=== PATIENT | male | born 1975 | race Caucasian/White ===

== ENCOUNTER 2023-01-12 11:32 | Day surgery (SDC) | payer MEDICAID ==
[~2023-01-12] VITALS: Ht 180.3 cm; Wt 128.0 kg
[2023-01-12] VITALS (13 sets, daily range): BP systolic 105–143; BP diastolic 61–90
[2023-01-12] MEDS ORDERED: famotidine 20mg tablet PO ONE (11:35)
[2023-01-12] MEDS ORDERED: INDOCYANINE GREEN 25 MG/10 ML VIAL IV ONE (12:01)
[2023-01-12] MEDS ORDERED: cefazolin 2gm/D5W 100mL 100 ML IV ONE (12:01)
[2023-01-12] MEDS ORDERED: ceFAZolin inj. 3,000 MG in normal saline 100ml IV soln 100 ML IV ONE (12:02)
[2023-01-12] MEDS ORDERED: ADV50100 INH (12:18)
[2023-01-12] MEDS ORDERED: ONDA4TAB12 PO (12:18)
[2023-01-12] MEDS ORDERED: OXYC-138 PO (12:18)
[2023-01-12] MEDS ORDERED: APIX5TAB3 PO (12:18)
[2023-01-12 12:42] LABS: BASOPHILS # (AUTO) 0.1 X10'3 (0-0.2); BASOPHILS % (AUTO) 0.9 % (0-1); EOSINOPHILS # (AUTO) 0.3 X10'3 (0-0.9); EOSINOPHILS % (AUTO) 3.6 % (0-6); LYMPHOCYTES # (AUTO) 1.2 X10'3 (1.1-4.8); LYMPHOCYTES % (AUTO) 17.4 % (21-51); MEAN CORPUSCULAR HEMOGLOBIN 25.6 PG (27.0-31.0); MEAN CORPUSCULAR HGB CONC 31.8 g/dL (33.0-36.5); MEAN CORPUSCULAR VOLUME 80.6 FL (78-98); MEAN PLATELET VOLUME 7.6 FL (7.4-10.4); MONOCYTES # (AUTO) 0.5 X10'3 (0-0.9); MONOCYTES % (AUTO) 7.7 % (2-12); NEUTROPHILS # (AUTO) 4.9 X10'3 (1.8-7.7); NEUTROPHILS % (AUTO) 70.4 % (42-75); PRE OP HEMATOCRIT 41.3 % (42.0-52.0); PRE OP HEMOGLOBIN 13.1 g/dL (14.0-17.9); PRE OP PLATELET COUNT 275 X10'3 (140-440); RED BLOOD COUNT 5.13 X10'6 (4.70-6.10); RED CELL DISTRIBUTION WIDTH 17.3 % (11.5-14.5)
[2023-01-12 12:51] LABS: PRE OP PROTIME 10.6 SECONDS (9.0-12.0)
[2023-01-12 12:58] LABS: ALBUMIN 3.4 G/DL (3.4-5.0); ALBUMIN/GLOBULIN RATIO 0.8 (1.1-1.5); ALKALINE PHOSPHATASE 159 IU/L (46-116); BLOOD UREA NITROGEN 7 MG/DL (7-18); BUN/CREATININE RATIO 8.5 (10.0-20.0); CALCIUM 9.1 MG/DL (8.5-10.1); CHLORIDE 105 MMOL/L (99-107); CREATININE 0.82 MG/DL (0.60-1.10); PRE OP ALT 31 U/L (30-65); PRE OP ANION GAP 5 (8-16); PRE OP AST 31 U/L (10-37); PRE OP BILIRUB, TOTAL 0.3 MG/DL (0.0-1.0); PRE OP GLUCOSE 89 MG/DL (70-104); PRE OP SODIUM 141 MMOL/L (135-145); TOTAL CARBON DIOXIDE 31.3 MMOL/L (24-32); TOTAL PROTEIN 7.9 G/DL (6.4-8.2); eGFR > 90 ML/MIN
[2023-01-12 12:59] LABS: PRE OP POTASSIUM 4.3 MMOL/L (3.4-5.1)
[2023-01-12] MEDS ORDERED: LIDOcaine 1% 30ml preserv. free vial ONE (13:30)
[2023-01-12] MEDS ORDERED: BUPIVAcaine/PF 2.5 mg/ml (0.25%) 30ml vial ONE (13:31)
[2023-01-12] MEDS ORDERED: rocuronium 10mg/ml inj IV ONE ×2 (13:50→14:18)
[2023-01-12] MEDS ORDERED: ATROPINE SULFATE 0.4 MG/ML injection (OR only) ONE (13:50)
[2023-01-12] MEDS ORDERED: sevoflurane 250ml liquid IH ONE (13:50)
[2023-01-12] MEDS ORDERED: fentaNYL/PF 50MCG/1 ML 2ML syringe ONE ×2 (13:54→14:21)
[2023-01-12] MEDS ORDERED: midazolam 1 mg/ML 2ml injection ONE (13:54)
[2023-01-12] MEDS ORDERED: propofol inj 20 ML IV ONE (14:18)
[2023-01-12] MEDS ORDERED: LIDOcaine 1%/PF 5ML 10 MG/ML VIAL ONE (14:18)
[2023-01-12] MEDS ORDERED: dexamethasone sod phosphate 4mg/ml inj. ONE (14:18)
[2023-01-12] MEDS ORDERED: glycopyrrolate 0.2mg/ml inj ONE (14:18)
[2023-01-12] MEDS ORDERED: ondansetron/PF 4mg/2ml inj ONE (14:18)
[2023-01-12] MEDS ORDERED: neostigmine methylsulfate 1 MG/ML 10ml vial ONE (14:18)
[2023-01-12] MEDS ORDERED: LIDOcaine 1% 30ml preserv. free vial IJ ONE (14:24)
[2023-01-12] MEDS ORDERED: acetaminophen 1,000mg/100ml IV 100 ML IV ONE (14:46)
[2023-01-12] MEDS ORDERED: proCHLORperazine 10 MG/2 ml inj IV PRN (14:50)
[2023-01-12] MEDS ORDERED: morphine 2 MG/ML inj. syringe IV PRN (14:50)
[2023-01-12] MEDS ORDERED: ondansetron/PF 4mg/2ml inj IV PRN (14:50)
[2023-01-12] MEDS ORDERED: ringers solution, lacted 1,000 ML IV SCH (14:50)
[2023-01-12] MEDS ORDERED: meperidine/PF 25mg/ml syringe IV PRN ×2 (14:50)
--- NOTE | 2023-01-12 16:00 | NUR ---
Received from OR via [facility], accompanied by Anesthesiologist DR. FULLER and report given by Anesthesiolgist. PIV TO RIGHT HAND 20G. LR RUNNING AT 100ML/HR. NAUSEA, PAIN PRESENT. MEDICATION ADMINISTERED. BANDAIDS X4 TO ABDOMEN CDI. 10L MASK SATURATIONS WNL'S.
[2023-01-12] MEDS: meperidine/PF 25mg/ml syringe IV PRN ×3 (16:10→16:58)
[2023-01-12] MEDS ORDERED: oxyCODONE/APAP 5-325mg tablet PO PRN (16:15)
[2023-01-12] MEDS: morphine 4 MG/ML inj SYRINge IV PRN ×2 (16:17→16:39)
--- NOTE | 2023-01-12 18:24 | NUR ---
1819 PATIENT MEETS DISCHARGE CRITERIA. VSS. PAIN MANAGEABLE. REMOVED IV. BELONGINGS SENT WITH PATIENT AND DISCHARGE INSTRUCTIONS UNDERSTOOD. FRIEND, ROOMMATE, DENISA TRNASPORTED PATIENT.
== END 2023-01-12 18:20 | disposition home or self-care (01) ==
LOC: PAS 11:32
PROVIDERS: ATTEND Surgery
DX: K80.12 Calculus of gallbladder with acute and chronic cholecystitis without obstruction (principal); I10 Essential (primary) hypertension; J44.9 Chronic obstructive pulmonary disease, unspecified; Z79.01 Long term (current) use of anticoagulants; Z79.899 Other long term (current) drug therapy; Z98.890 Other specified postprocedural states
CPT/HCPCS: 36415; 47563; 80053; 82948; 85025; 85610; 85730; 93005; J0131; J1100; J2175; J2250; J2270; J2405; J2704; J2710; J3010; J3490; J7030; J7120; S2900; Z7506; Z7508; Z7512; A4215; A4618; A7000; J0690

== ENCOUNTER 2023-06-01 09:08 | Inpatient (IN) | payer MEDICAID ==
[2023-05-26 15:37] LABS: BASOPHILS % (AUTO) 0.6 % (0-1); EOSINOPHILS # (AUTO) 0.3 X10'3 (0-0.9); EOSINOPHILS % (AUTO) 3.3 % (0-6); LYMPHOCYTES # (AUTO) 1.4 X10'3 (1.1-4.8); LYMPHOCYTES % (AUTO) 16.9 % (21-51); MEAN CORPUSCULAR HEMOGLOBIN 26.6 PG (27.0-31.0); MEAN CORPUSCULAR HGB CONC 32.5 g/dL (33.0-36.5); MEAN CORPUSCULAR VOLUME 81.7 FL (78-98); MEAN PLATELET VOLUME 7.6 FL (7.4-10.4); MONOCYTES # (AUTO) 0.6 X10'3 (0-0.9); MONOCYTES % (AUTO) 7.9 % (2-12); NEUTROPHILS # (AUTO) 5.8 X10'3 (1.8-7.7); NEUTROPHILS % (AUTO) 71.3 % (42-75); PRE OP HEMATOCRIT 39.7 % (42.0-52.0); PRE OP HEMOGLOBIN 12.9 g/dL (14.0-17.9); PRE OP PLATELET COUNT 272 X10'3 (140-440); PRE OP WHITE BLOOD COUNT 8.1 10'3 (4.8-10.8); RED BLOOD COUNT 4.86 X10'6 (4.70-6.10); RED CELL DISTRIBUTION WIDTH 15.5 % (11.5-14.5)
[2023-05-26 15:52] LABS: ALBUMIN 3.4 G/DL (3.4-5.0); ALBUMIN/GLOBULIN RATIO 0.7 (1.1-1.5); ALKALINE PHOSPHATASE 631 IU/L (46-116); BLOOD UREA NITROGEN 13 MG/DL (7-18); CALCIUM 9.4 MG/DL (8.5-10.1); CHLORIDE 102 MMOL/L (99-107); CREATININE 0.93 MG/DL (0.60-1.10); PRE OP ANION GAP 8 (8-16); PRE OP AST 74 U/L (10-37); PRE OP BILIRUB, TOTAL 0.4 MG/DL (0.0-1.0); PRE OP GLUCOSE 76 MG/DL (70-104); PRE OP POTASSIUM 4.2 MMOL/L (3.4-5.1); PRE OP SODIUM 138 MMOL/L (135-145); TOTAL PROTEIN 8.2 G/DL (6.4-8.2); eGFR 87 ML/MIN
[2023-05-26 16:06] LABS: PRE OP ALT 104 U/L (30-65)
[2023-06-01] VITALS (23 sets, daily range): BP systolic 97–152; BP diastolic 62–106; PULSE 53–97; RESP 12–22; TEMP 96.8–98.4; O2SAT 94–100
[~2023-06-01] VITALS: Ht 182.9 cm; Wt 114.6 kg
[~2023-06-01 09:08] MED LIST: ADV50250 INH; APIX5TAB3 PO; OMEP40CA21 PO; OXYC-138 PO; cefazolin 2gm/D5W 100mL 100 ML IV ONE; famotidine 20mg tablet PO ONE; ringers solution, lacted 1,000 ML IV SCH
[2023-06-01] MEDS ORDERED: LIDOcaine 1% 30ml preserv. free vial ONE (11:54)
[2023-06-01] MEDS ORDERED: BUPIVAcaine/PF 2.5 mg/ml (0.25%) 30ml vial ONE (11:55)
[2023-06-01] MEDS ORDERED: BUPIVAcaine/PF 2.5 mg/ml (0.25%) 30ml vial IJ ONE (12:00)
[2023-06-01] MEDS ORDERED: LIDOcaine 1% 30ml preserv. free vial IJ ONE (12:00)
[2023-06-01] MEDS ORDERED: sevoflurane 250ml liquid IH ONE (12:14)
[2023-06-01] MEDS ORDERED: ondansetron/PF 4mg/2ml inj ONE (12:14)
[2023-06-01] MEDS ORDERED: dexamethasone sod phosphate 10mg/ml inj ONE (12:14)
[2023-06-01] MEDS ORDERED: hydrALAZINE 20mg/ml inj. IV PRN (12:20)
[2023-06-01] MEDS ORDERED: labetalol 20mg/4ml (5mg/ml) syringe IV PRN (12:20)
[2023-06-01] MEDS ORDERED: ringers solution, lacted 1,000 ML IV SCH (12:20)
[2023-06-01] MEDS ORDERED: acetaminophen 1,000mg/100ml IV 100 ML IV PRN (12:20)
[2023-06-01] MEDS ORDERED: morphine 4 MG/ML inj SYRINge IV PRN (12:20)
[2023-06-01] MEDS ORDERED: proCHLORperazine 10 MG/2 ml inj IV PRN (12:20)
[2023-06-01] MEDS ORDERED: meperidine/PF 25mg/ml syringe IV PRN ×3 (12:20)
[2023-06-01] MEDS ORDERED: morphine 2 MG/ML inj. syringe IV PRN (12:20)
[2023-06-01] MEDS ORDERED: ondansetron/PF 4mg/2ml inj IV PRN (12:20)
[2023-06-01] MEDS ORDERED: ketorolac trometh. 30mg/ml inj. IV ONE (12:20)
[2023-06-01] MEDS ORDERED: midazolam 1 mg/ML 2ml injection ONE (12:23)
[2023-06-01] MEDS ORDERED: fentaNYL /PF 50mcg/ml 5ml ampule ONE (12:23)
[2023-06-01] MEDS ORDERED: rocuronium 10mg/ml inj IV ONE ×2 (13:11)
[2023-06-01] MEDS ORDERED: LIDOcaine 2% (20mg/ml) 5ml vial ONE (13:11)
[2023-06-01] MEDS ORDERED: neostigmine methylsulfate 1 MG/ML 10ml vial ONE (13:11)
[2023-06-01] MEDS ORDERED: propofol inj 20 ML IV ONE ×2 (13:11)
[2023-06-01] MEDS ORDERED: 0.9 % SODIUM CHLORIDE 10 ML VIAL ONE (13:55)
[2023-06-01] MEDS ORDERED: ePHEDrine 50MG/ML INJ. ONE (13:55)
[2023-06-01] MEDS ORDERED: sugammadex 200mg/2ml injection IV ONE (14:22)
--- NOTE | 2023-06-01 14:33 | NUR ---
Received from OR via [facility] , accompanied by Anesthesiologist and report given by [place] Anesthesiologist. PATIENT A&OX4, ABDOMEN PAIN NOTED, V/S WNL, SCD ON , PIV 20G RIGHT FOREARM, BANDAID LAPS SITES CLOSED C/D/I TO ABDOMEN WITH JERMAIN DRAINING 10 CC OF SEROSANGUINEOUS FLUID. BERTRAND CATHETER DRAINING CLEAR YELLOW URINE. RIGHT NG TUBE CONNECTED TO LOW CONTINUOUS WALL SUCTION AND SEROUS DRAINAGE NOTED. Addendum: 06/01/23 at 1505 by Bob Taylor RN Amended: Links added.
[2023-06-01] MEDS ORDERED: naloxone 0.4 mg/ml inj IV PRN (14:40)
[2023-06-01] MEDS: normal saline 1000ml 1,000 ML IV SCH (14:40)
[2023-06-01] MEDS: HYDROmorph/NS 0.2 mg/ml PCA 100 ML IV SCH ×5 (15:41→23:00)
--- NOTE | 2023-06-01 15:53 | NUR ---
PATIENT HAS MET ALL CRITERIA FOR TRANSFER TO ORTHO FLOOR. VSS. DRESSINGS INTACT. BED LOW, CALL LIGHT PRESENT AND 2 RAILS UP. RN PRESENT TO ACCEPT CARE OF PATIENT AND REPORT HAS BEEN CALLED. ALL QUESTIONS ANSWERED TO ACCEPTING RN. Addendum: 06/01/23 at 1614 by Bob Taylor RN Amended: Links added.
[2023-06-01] MEDS: ondansetron/PF 4mg/2ml inj IV PRN (16:16)
[2023-06-01] MEDS: budesonide 0.5mg/2ml UD nebule IH SCH (20:00)
[2023-06-01] MEDS: albuterol 2.5 MG/3 ML nebule NEB SCH (20:00)
[2023-06-02] VITALS (12 sets, daily range): BP systolic 90–107; BP diastolic 54–68; PULSE 86–102; RESP 14–19; TEMP 97.6–98.7; O2SAT 93–98
[2023-06-02] MEDS: ringers solution, lacted 1,000 ML IV SCH ×4 (00:40→20:40)
[2023-06-02] MEDS: HYDROmorph/NS 0.2 mg/ml PCA 100 ML IV SCH ×12 (01:00→23:00)
[2023-06-02] MEDS: albuterol 2.5 MG/3 ML nebule NEB SCH ×4 (02:00→19:45)
--- NOTE | 2023-06-02 06:30 | NUR ---
Problems reprioritized. Patient report given, questions answered & plan of care reviewed with ANGELA BLACK. PT HAS BEEN NPO ON LOW CONT SUCTION ONLY HAD A TOTAL OF 200 MLS SINCE ARRIVAL ON FLOOR SANGUINEOUS OUTPUT FROM RT SANJU AGUIRRE, DENIES PRESSURE IN ABDOMEN
[2023-06-02] MEDS: ondansetron/PF 4mg/2ml inj IV PRN (06:31)
[2023-06-02 06:54] LABS: BASOPHILS # (AUTO) 0.1 X10'3 (0-0.2); BASOPHILS % (AUTO) 0.8 % (0-1); EOSINOPHILS # (AUTO) 0.2 X10'3 (0-0.9); EOSINOPHILS % (AUTO) 1.4 % (0-6); HEMATOCRIT 28.9 % (42.0-52.0); HEMOGLOBIN 9.4 g/dl (14.0-17.9); LYMPHOCYTES # (AUTO) 1.3 X10'3 (1.1-4.8); LYMPHOCYTES % (AUTO) 11.7 % (21-51); MEAN CORPUSCULAR HEMOGLOBIN 26.8 PG (27.0-31.0); MEAN CORPUSCULAR HGB CONC 32.6 g/dL (33.0-36.5); MEAN CORPUSCULAR VOLUME 82.2 FL (78-98); MEAN PLATELET VOLUME 7.7 FL (7.4-10.4); MONOCYTES # (AUTO) 0.8 X10'3 (0-0.9); MONOCYTES % (AUTO) 7.1 % (2-12); NEUTROPHILS # (AUTO) 8.8 X10'3 (1.8-7.7); PLATELET COUNT 343 X10'3 (140-440); RED BLOOD COUNT 3.52 X10'6 (4.70-6.10); RED CELL DISTRIBUTION WIDTH 15.1 % (11.5-14.5); WHITE BLOOD COUNT 11.1 X10'3 (4.5-11.0)
[2023-06-02 07:18] LABS: ALANINE AMINOTRANSFERASE 113 U/L (12-78); ALBUMIN 2.6 G/DL (3.4-5.0); ALBUMIN/GLOBULIN RATIO 0.7 (1.1-1.5); ALKALINE PHOSPHATASE 462 IU/L (46-116); ANION GAP 6 (8-16); ASPARTATE AMINO TRANSFERASE 57 U/L (10-37); BILIRUBIN,TOTAL 0.7 MG/DL (0.1-1.0); BLOOD UREA NITROGEN 20 MG/DL (7-18); BUN/CREATININE RATIO 15.7 (10.0-20.0); CALCIUM 8.5 MG/DL (8.5-10.1); CHLORIDE 104 MMOL/L (99-107); CREATININE 1.27 MG/DL (0.60-1.10); GLUCOSE 102 MG/DL (70-104); POTASSIUM 5.9 MMOL/L (3.5-5.1); SODIUM 136 MMOL/L (135-145); TOTAL CARBON DIOXIDE 26.4 MMOL/L (24-32); TOTAL PROTEIN 6.2 G/DL (6.4-8.2); eCRCL 78 ML/MIN; eGFR 61 ML/MIN
[2023-06-02] MEDS: budesonide 0.5mg/2ml UD nebule IH SCH ×2 (07:51→19:45)
[2023-06-02] MEDS ORDERED: enoxaparin 40mg/0.4ml syringe SQ SCH (08:00)
[2023-06-02] MEDS: pantoprazole 40MG/NS 100ML BAG 100 ML IV SCH (08:45)
[2023-06-02] MEDS ORDERED: ketorolac tromethamine 15mg/ml inj. IV ONE (18:20)
--- NOTE | 2023-06-02 18:30 | NUR ---
Patient in room ORTHO 4018. I have received report from Karla MILLER and had the opportunity to ask questions and assume patient care.
[2023-06-03] VITALS (11 sets, daily range): BP systolic 93–118; BP diastolic 60–67; PULSE 79–97; RESP 14–18; TEMP 97.2–98.1; O2SAT 94–99
[2023-06-03] MEDS: HYDROmorph/NS 0.2 mg/ml PCA 100 ML IV SCH ×12 (01:00→23:00)
[2023-06-03] MEDS: albuterol 2.5 MG/3 ML nebule NEB SCH ×4 (03:58→20:17)
--- NOTE | 2023-06-03 05:00 | NUR ---
ANGELA documentation: I have reviewed and agree with all interventions, assessments performed and documented by Booker MILLER.
--- NOTE | 2023-06-03 06:24 | NUR ---
Problems reprioritized. Patient report given, questions answered & plan of care reviewed with Karla MILLER.
[2023-06-03 06:35] LABS: ALANINE AMINOTRANSFERASE 57 U/L (12-78); ALBUMIN 2.3 G/DL (3.4-5.0); ALBUMIN/GLOBULIN RATIO 0.7 (1.1-1.5); ALKALINE PHOSPHATASE 357 IU/L (46-116); ANION GAP 4 (8-16); ASPARTATE AMINO TRANSFERASE 27 U/L (10-37); BILIRUBIN,TOTAL 0.3 MG/DL (0.1-1.0); BLOOD UREA NITROGEN 42 MG/DL (7-18); BUN/CREATININE RATIO 39.6 (10.0-20.0); CALCIUM 8.4 MG/DL (8.5-10.1); CHLORIDE 107 MMOL/L (99-107); CREATININE 1.06 MG/DL (0.60-1.10); GLUCOSE 133 MG/DL (70-104); POTASSIUM 4.7 MMOL/L (3.5-5.1); SODIUM 142 MMOL/L (135-145); TOTAL PROTEIN 5.8 G/DL (6.4-8.2); eCRCL 94 ML/MIN; eGFR 75 ML/MIN
[2023-06-03 06:39] LABS: BASOPHILS % (AUTO) 0.5 % (0-1); EOSINOPHILS # (AUTO) 0.1 X10'3 (0-0.9); EOSINOPHILS % (AUTO) 1.7 % (0-6); HEMATOCRIT 22.7 % (42.0-52.0); HEMOGLOBIN 7.4 g/dl (14.0-17.9); LYMPHOCYTES # (AUTO) 1.2 X10'3 (1.1-4.8); MEAN CORPUSCULAR HEMOGLOBIN 27.1 PG (27.0-31.0); MEAN CORPUSCULAR HGB CONC 32.8 g/dL (33.0-36.5); MEAN CORPUSCULAR VOLUME 82.6 FL (78-98); MEAN PLATELET VOLUME 7.7 FL (7.4-10.4); MONOCYTES # (AUTO) 0.7 X10'3 (0-0.9); MONOCYTES % (AUTO) 8.9 % (2-12); NEUTROPHILS # (AUTO) 5.4 X10'3 (1.8-7.7); NEUTROPHILS % (AUTO) 72.9 % (42-75); PLATELET COUNT 226 X10'3 (140-440); RED BLOOD COUNT 2.75 X10'6 (4.70-6.10); RED CELL DISTRIBUTION WIDTH 15.1 % (11.5-14.5); WHITE BLOOD COUNT 7.4 X10'3 (4.5-11.0)
[2023-06-03] MEDS: pantoprazole 40MG/NS 100ML BAG 100 ML IV SCH (08:10)
[2023-06-03] MEDS: ringers solution, lacted 1,000 ML IV SCH ×2 (08:22→16:40)
[2023-06-03] MEDS: budesonide 0.5mg/2ml UD nebule IH SCH ×2 (08:53→21:07)
[2023-06-03] MEDS ORDERED: pantoprazole 40MG/NS 100ML BAG 100 ML IV SCH (11:00)
[2023-06-03 13:30] LABS: HEMATOCRIT 23.9 % (42.0-52.0); HEMOGLOBIN 7.7 g/dl (14.0-17.9); MEAN CORPUSCULAR HEMOGLOBIN 26.7 PG (27.0-31.0); MEAN CORPUSCULAR HGB CONC 32.3 g/dL (33.0-36.5); MEAN CORPUSCULAR VOLUME 82.5 FL (78-98); MEAN PLATELET VOLUME 7.6 FL (7.4-10.4); PLATELET COUNT 247 X10'3 (140-440); RED CELL DISTRIBUTION WIDTH 15.3 % (11.5-14.5); WHITE BLOOD COUNT 8.2 X10'3 (4.5-11.0)
[2023-06-03] MEDS: normal saline 1000ml 1,000 ML IV SCH (14:40)
--- NOTE | 2023-06-03 18:00 | NUR ---
I have reviewed and agree with interventions, assessments, and documentation by Karla Stover LVN.
--- NOTE | 2023-06-03 18:48 | NUR ---
Patient in room ORTHO 4016. I have received report from Karla MILLER and had the opportunity to ask questions and assume patient care.
--- NOTE | 2023-06-03 22:37 | NUR ---
pt in bed, vomiting. approxd 400 ml, dark red. pt returned to suction per order. italian lecturer notified, will continue to monitor
[2023-06-03] MEDS: ondansetron/PF 4mg/2ml inj IV PRN (23:18)
[2023-06-04] VITALS (20 sets, daily range): BP systolic 95–116; BP diastolic 46–68; PULSE 68–91; RESP 14–19; TEMP 97.3–98.9; O2SAT 93–100
[2023-06-04] MEDS: HYDROmorph/NS 0.2 mg/ml PCA 100 ML IV SCH ×5 (01:00→11:00)
[2023-06-04] MEDS: albuterol 2.5 MG/3 ML nebule NEB SCH ×4 (02:00→21:19)
[2023-06-04] MEDS: ringers solution, lacted 1,000 ML IV SCH ×3 (02:59→23:25)
--- NOTE | 2023-06-04 06:10 | NUR ---
Patient in room ORTHO 4015. I have received report from Booker MILLER and had the opportunity to ask questions and assume patient care.
--- NOTE | 2023-06-04 06:20 | NUR ---
Problems reprioritized. Patient report given, questions answered & plan of care reviewed with Lena YU.
--- NOTE | 2023-06-04 06:43 | NUR ---
I agre with DUMP TRUCK DRIVER physical assessment
[2023-06-04] MEDS: pantoprazole 40MG/NS 100ML BAG 100 ML IV SCH (07:43)
[2023-06-04] MEDS: budesonide 0.5mg/2ml UD nebule IH SCH ×2 (08:00→21:19)
--- NOTE | 2023-06-04 08:00 | NUR ---
Lab called a critical h/h of 6.[address] Galicia was contacted and ordered a type and cross and 2 units prbc
[2023-06-04 08:13] LABS: BASOPHILS % (AUTO) 0.6 % (0-1); EOSINOPHILS # (AUTO) 0.2 X10'3 (0-0.9); EOSINOPHILS % (AUTO) 2.9 % (0-6); LYMPHOCYTES # (AUTO) 1.1 X10'3 (1.1-4.8); LYMPHOCYTES % (AUTO) 14.5 % (21-51); MEAN CORPUSCULAR HEMOGLOBIN 26.9 PG (27.0-31.0); MEAN CORPUSCULAR HGB CONC 32.5 g/dL (33.0-36.5); MEAN CORPUSCULAR VOLUME 82.7 FL (78-98); MEAN PLATELET VOLUME 7.9 FL (7.4-10.4); MONOCYTES # (AUTO) 0.6 X10'3 (0-0.9); MONOCYTES % (AUTO) 7.6 % (2-12); NEUTROPHILS # (AUTO) 5.8 X10'3 (1.8-7.7); NEUTROPHILS % (AUTO) 74.4 % (42-75); PLATELET COUNT 216 X10'3 (140-440); RED BLOOD COUNT 2.34 X10'6 (4.70-6.10); RED CELL DISTRIBUTION WIDTH 15.3 % (11.5-14.5); WHITE BLOOD COUNT 7.8 X10'3 (4.5-11.0)
[2023-06-04 08:30] LABS: HEMATOCRIT 19.4 % (42.0-52.0); HEMOGLOBIN 6.3 g/dl (14.0-17.9)
[2023-06-04 09:13] LABS: ALANINE AMINOTRANSFERASE 50 U/L (12-78); ALBUMIN 2.4 G/DL (3.4-5.0); ALBUMIN/GLOBULIN RATIO 0.7 (1.1-1.5); ALKALINE PHOSPHATASE 284 IU/L (46-116); ANION GAP 5 (8-16); ASPARTATE AMINO TRANSFERASE 25 U/L (10-37); BILIRUBIN,TOTAL 0.2 MG/DL (0.1-1.0); BLOOD UREA NITROGEN 26 MG/DL (7-18); BUN/CREATININE RATIO 29.5 (10.0-20.0); CALCIUM 8.6 MG/DL (8.5-10.1); CHLORIDE 108 MMOL/L (99-107); CREATININE 0.88 MG/DL (0.60-1.10); GLUCOSE 122 MG/DL (70-104); POTASSIUM 4.6 MMOL/L (3.5-5.1); SODIUM 144 MMOL/L (135-145); TOTAL CARBON DIOXIDE 30.7 MMOL/L (24-32); TOTAL PROTEIN 5.9 G/DL (6.4-8.2); eCRCL 113 ML/MIN; eGFR > 90 ML/MIN
[2023-06-04] MEDS ORDERED: PCA WASTE DOCUMENTATION 1 MG ML MC ONE (13:40)
[2023-06-04] MEDS: oxyCODONE/APAP 10/325mg tablet PO PRN ×3 (13:59→22:20)
--- NOTE | 2023-06-04 14:32 | NUR ---
pt. refused 0800 svn, wanted to sleep. no resp. distress observed
[2023-06-04 15:18] LABS: MEAN CORPUSCULAR HEMOGLOBIN 27.1 PG (27.0-31.0); MEAN CORPUSCULAR HGB CONC 32.8 g/dL (33.0-36.5); MEAN CORPUSCULAR VOLUME 82.7 FL (78-98); MEAN PLATELET VOLUME 7.6 FL (7.4-10.4); PLATELET COUNT 199 X10'3 (140-440); RED BLOOD COUNT 2.48 X10'6 (4.70-6.10); RED CELL DISTRIBUTION WIDTH 15.2 % (11.5-14.5); WHITE BLOOD COUNT 7.2 X10'3 (4.5-11.0)
[2023-06-04 15:20] LABS: HEMATOCRIT 20.5 % (42.0-52.0); HEMOGLOBIN 6.7 g/dl (14.0-17.9)
--- NOTE | 2023-06-04 18:45 | NUR ---
Patient in room ORTHO 4015. I have received report from DELBERT YU and had the opportunity to ask questions and assume patient care.
[2023-06-04 21:19] LABS: HEMATOCRIT 22.7 % (42.0-52.0); HEMOGLOBIN 7.4 g/dl (14.0-17.9); MEAN CORPUSCULAR HEMOGLOBIN 27.2 PG (27.0-31.0); MEAN CORPUSCULAR HGB CONC 32.7 g/dL (33.0-36.5); MEAN CORPUSCULAR VOLUME 83.1 FL (78-98); MEAN PLATELET VOLUME 7.9 FL (7.4-10.4); PLATELET COUNT 195 X10'3 (140-440); RED BLOOD COUNT 2.73 X10'6 (4.70-6.10); RED CELL DISTRIBUTION WIDTH 14.9 % (11.5-14.5); WHITE BLOOD COUNT 6.9 X10'3 (4.5-11.0)
[2023-06-05] VITALS (17 sets, daily range): BP systolic 95–137; BP diastolic 45–67; PULSE 63–92; RESP 15–20; TEMP 97.1–98.6; O2SAT 95–98
[2023-06-05] MEDS: albuterol 2.5 MG/3 ML nebule NEB SCH ×4 (03:34→20:00)
[2023-06-05 06:14] LABS: ALANINE AMINOTRANSFERASE 29 U/L (12-78); ALBUMIN 2.2 G/DL (3.4-5.0); ALBUMIN/GLOBULIN RATIO 0.7 (1.1-1.5); ALKALINE PHOSPHATASE 209 IU/L (46-116); ANION GAP 5 (8-16); ASPARTATE AMINO TRANSFERASE 20 U/L (10-37); BILIRUBIN,TOTAL 0.5 MG/DL (0.1-1.0); BLOOD UREA NITROGEN 15 MG/DL (7-18); BUN/CREATININE RATIO 18.8 (10.0-20.0); CALCIUM 8.1 MG/DL (8.5-10.1); CHLORIDE 107 MMOL/L (99-107); GLUCOSE 110 MG/DL (70-104); POTASSIUM 3.7 MMOL/L (3.5-5.1); SODIUM 143 MMOL/L (135-145); TOTAL CARBON DIOXIDE 31.3 MMOL/L (24-32); TOTAL PROTEIN 5.3 G/DL (6.4-8.2); eCRCL 124 ML/MIN; eGFR > 90 ML/MIN
[2023-06-05 06:35] LABS: BASOPHILS % (AUTO) 0.8 % (0-1); EOSINOPHILS # (AUTO) 0.3 X10'3 (0-0.9); EOSINOPHILS % (AUTO) 5.4 % (0-6); LYMPHOCYTES # (AUTO) 1.3 X10'3 (1.1-4.8); LYMPHOCYTES % (AUTO) 21.9 % (21-51); MEAN CORPUSCULAR HEMOGLOBIN 27.7 PG (27.0-31.0); MEAN CORPUSCULAR HGB CONC 32.9 g/dL (33.0-36.5); MEAN CORPUSCULAR VOLUME 84.2 FL (78-98); MEAN PLATELET VOLUME 7.9 FL (7.4-10.4); MONOCYTES # (AUTO) 0.5 X10'3 (0-0.9); NEUTROPHILS # (AUTO) 3.8 X10'3 (1.8-7.7); NEUTROPHILS % (AUTO) 62.9 % (42-75); PLATELET COUNT 188 X10'3 (140-440); RED BLOOD COUNT 2.27 X10'6 (4.70-6.10); RED CELL DISTRIBUTION WIDTH 14.9 % (11.5-14.5)
--- NOTE | 2023-06-05 06:42 | NUR ---
Problems reprioritized. Patient report given, questions answered & plan of care reviewed with DELBERT YU.
[2023-06-05 06:48] LABS: HEMATOCRIT 19.2 % (42.0-52.0); HEMOGLOBIN 6.3 g/dl (14.0-17.9)
[2023-06-05] MEDS: oxyCODONE/APAP 10/325mg tablet PO PRN ×5 (07:30→23:52)
[2023-06-05] MEDS: pantoprazole 40MG/NS 100ML BAG 100 ML IV SCH (07:31)
[2023-06-05] MEDS: budesonide 0.5mg/2ml UD nebule IH SCH ×2 (07:37→20:00)
[2023-06-05] MEDS ORDERED: iohexol 300mg/ml 100ml inj. ONE (10:30)
[2023-06-05] MEDS: normal saline 1000ml 1,000 ML IV SCH (11:01)
[2023-06-05 13:17] LABS: MEAN CORPUSCULAR HEMOGLOBIN 28.7 PG (27.0-31.0); MEAN CORPUSCULAR HGB CONC 33.5 g/dL (33.0-36.5); MEAN CORPUSCULAR VOLUME 85.6 FL (78-98); MEAN PLATELET VOLUME 7.9 FL (7.4-10.4); PLATELET COUNT 181 X10'3 (140-440); RED BLOOD COUNT 2.34 X10'6 (4.70-6.10); RED CELL DISTRIBUTION WIDTH 15.6 % (11.5-14.5); WHITE BLOOD COUNT 6.4 X10'3 (4.5-11.0)
[2023-06-05 13:20] LABS: HEMATOCRIT 20.1 % (42.0-52.0); HEMOGLOBIN 6.7 g/dl (14.0-17.9)
[2023-06-05 18:15] LABS: HEMATOCRIT 22.6 % (42.0-52.0); HEMOGLOBIN 7.7 g/dl (14.0-17.9); MEAN CORPUSCULAR HEMOGLOBIN 29.2 PG (27.0-31.0); MEAN CORPUSCULAR VOLUME 85.8 FL (78-98); MEAN PLATELET VOLUME 7.8 FL (7.4-10.4); PLATELET COUNT 183 X10'3 (140-440); RED BLOOD COUNT 2.63 X10'6 (4.70-6.10); RED CELL DISTRIBUTION WIDTH 15.6 % (11.5-14.5); WHITE BLOOD COUNT 7.2 X10'3 (4.5-11.0)
--- NOTE | 2023-06-05 18:42 | NUR ---
Patient in room ORTHO 4015. I have received report from DELBERT YU and had the opportunity to ask questions and assume patient care.
[2023-06-05] MEDS: ondansetron/PF 4mg/2ml inj IV PRN (19:00)
[2023-06-05 19:47] LABS: HEMATOCRIT 22.8 % (42.0-52.0); HEMOGLOBIN 7.7 g/dl (14.0-17.9); MEAN CORPUSCULAR HGB CONC 33.9 g/dL (33.0-36.5); MEAN CORPUSCULAR VOLUME 85.6 FL (78-98); PLATELET COUNT 221 X10'3 (140-440); RED BLOOD COUNT 2.67 X10'6 (4.70-6.10); RED CELL DISTRIBUTION WIDTH 15.6 % (11.5-14.5); WHITE BLOOD COUNT 8.3 X10'3 (4.5-11.0)
--- NOTE | 2023-06-05 20:29 | NUR ---
1910, PATIENT UP AMBULATING TO BATHROOM AND FELT LIKE HE NEEDED TO HAVE AN EMESIS. MADE IT TO THE SINK IN THE ROOM AND VIOLENTLY THREW UP APPROX 400ML RED CLOTS WITH A LARGE AMT OF LIQUID BLOOD AND STOMACH CONTENT WELL. BONITA GIVEN IVP, CALLED DR. TOBIN TO REPORT THIS AND GIVEN AN ORDER FOR STAT H/H AND MONITOR VITAL SIGNS. VITALS ARE STABLE AT 130/60 HR 90. BLOOD DRAWN AND SENT TO LAB FOR STAT H/H
--- NOTE | 2023-06-05 20:32 | NUR ---
1939 H/H RESULTED AND STABLE. NO SIGNIFICANT DROP SINCE LAST H/H AT 1600. 7.7/22.7 DR. BACA NOTIFIED, AND REPEAT H/H ORDERED FOR AM
[2023-06-05 23:35] LABS: BASOPHILS # (AUTO) 0.1 X10'3 (0-0.2); BASOPHILS % (AUTO) 0.8 % (0-1); EOSINOPHILS # (AUTO) 0.3 X10'3 (0-0.9); EOSINOPHILS % (AUTO) 3.5 % (0-6); LYMPHOCYTES # (AUTO) 1.5 X10'3 (1.1-4.8); LYMPHOCYTES % (AUTO) 19.4 % (21-51); MEAN CORPUSCULAR HEMOGLOBIN 29.4 PG (27.0-31.0); MEAN CORPUSCULAR VOLUME 86.6 FL (78-98); MEAN PLATELET VOLUME 8.1 FL (7.4-10.4); MONOCYTES # (AUTO) 0.6 X10'3 (0-0.9); MONOCYTES % (AUTO) 7.8 % (2-12); NEUTROPHILS # (AUTO) 5.4 X10'3 (1.8-7.7); NEUTROPHILS % (AUTO) 68.5 % (42-75); PLATELET COUNT 191 X10'3 (140-440); RED BLOOD COUNT 2.17 X10'6 (4.70-6.10); RED CELL DISTRIBUTION WIDTH 15.8 % (11.5-14.5); WHITE BLOOD COUNT 7.9 X10'3 (4.5-11.0)
--- NOTE | 2023-06-05 23:36 | NUR ---
2200 PATIENT VOMITING INTO EMESIS BAG, VIOLENT EMESIS. 700ML BLOODY EMESIS WITH LARGE CLOTS. PATIENT ALSO HAD BM EARLIER AND NOTED IT TO BE BLOODY AND FORMED. NOTIFIED DR. BACA OF THIS AND RC'D ORDER FOR STAT CBC, NOTIFY HIM IF DROP IN H/H OTHERWISE, CONTINUE TO MONITOR THROUGH THE NIGHT. AWAITING RESULTS FROM BLOOD DRAW/LAB.
[2023-06-05 23:42] LABS: HEMOGLOBIN 6.4 g/dl (14.0-17.9)
[2023-06-05 23:43] LABS: HEMATOCRIT 18.8 % (42.0-52.0)
[2023-06-06] VITALS (34 sets, daily range): BP systolic 97–156; BP diastolic 51–99; PULSE 69–92; RESP 12–20; TEMP 97.3–98.5; O2SAT 85–100
--- NOTE | 2023-06-06 00:24 | NUR ---
2319 RC'D CRITICAL RESULTS FROM BLOOD DRAWN. H/H NOW 6.4/18.8 DR. BACA NOTIFIED AND RC'D ORDER TO PLACE AN NG TO LOW CONTINUOUS SUCTION, PATIENT TO BE NPO AND INCREASE IVF'S FROM TKO TO 100ML/HR. PATIENT MEDICATED WITH PERCOCET FOR PAIN 06/13, WILL GIVE TIME FOR PAIN MED TO WORK WITHOUT RISKING HAVING PAIN MED SUCKED FROM HIS STOMACH WITH THE NG. TO EVALUATE IN THE AM.
[2023-06-06] MEDS: albuterol 2.5 MG/3 ML nebule NEB SCH ×4 (02:00→19:50)
--- NOTE | 2023-06-06 03:22 | NUR ---
0150 NG TUBE PLACED IN R NARE WITH IMMEDIATE RETURN OF APPROX 50ML BLOODY LIQUID. NG SUCTION AT LOW CONTINUOUS SUCTION. PATIENT TOLERATED WELL. TUBING SECURED TO NOSE WITH TAPE AND SAFETY PINNED TO GOWN WELL. PATIENT STATES HE ALMOST IMMEDIATELY HAD RELIEF OF DISCOMFORT IN HIS BELLY.
[2023-06-06 06:02] LABS: BASOPHILS % (AUTO) 0.6 % (0-1); EOSINOPHILS # (AUTO) 0.3 X10'3 (0-0.9); EOSINOPHILS % (AUTO) 4.7 % (0-6); LYMPHOCYTES # (AUTO) 1.4 X10'3 (1.1-4.8); MEAN CORPUSCULAR HEMOGLOBIN 28.7 PG (27.0-31.0); MEAN CORPUSCULAR HGB CONC 33.1 g/dL (33.0-36.5); MEAN CORPUSCULAR VOLUME 86.7 FL (78-98); MEAN PLATELET VOLUME 8.2 FL (7.4-10.4); MONOCYTES # (AUTO) 0.6 X10'3 (0-0.9); MONOCYTES % (AUTO) 9.2 % (2-12); NEUTROPHILS # (AUTO) 4.3 X10'3 (1.8-7.7); NEUTROPHILS % (AUTO) 64.5 % (42-75); PLATELET COUNT 190 X10'3 (140-440); RED BLOOD COUNT 1.87 X10'6 (4.70-6.10); RED CELL DISTRIBUTION WIDTH 15.6 % (11.5-14.5); WHITE BLOOD COUNT 6.7 X10'3 (4.5-11.0)
[2023-06-06 06:15] LABS: ALANINE AMINOTRANSFERASE 28 U/L (12-78); ALBUMIN 1.9 G/DL (3.4-5.0); ALBUMIN/GLOBULIN RATIO 0.7 (1.1-1.5); ALKALINE PHOSPHATASE 157 IU/L (46-116); ANION GAP 3 (8-16); ASPARTATE AMINO TRANSFERASE 17 U/L (10-37); BILIRUBIN,TOTAL 0.3 MG/DL (0.1-1.0); BLOOD UREA NITROGEN 14 MG/DL (7-18); BUN/CREATININE RATIO 16.3 (10.0-20.0); CALCIUM 7.6 MG/DL (8.5-10.1); CHLORIDE 106 MMOL/L (99-107); CREATININE 0.86 MG/DL (0.60-1.10); GLUCOSE 119 MG/DL (70-104); POTASSIUM 3.8 MMOL/L (3.5-5.1); SODIUM 140 MMOL/L (135-145); TOTAL CARBON DIOXIDE 30.7 MMOL/L (24-32); TOTAL PROTEIN 4.6 G/DL (6.4-8.2); eCRCL 115 ML/MIN; eGFR > 90 ML/MIN
[2023-06-06 06:19] LABS: HEMATOCRIT 16.2 % (42.0-52.0); HEMOGLOBIN 5.4 g/dl (14.0-17.9)
--- NOTE | 2023-06-06 06:35 | NUR ---
H/H RESULTED FROM AM DRAW: 5.4/16.2 REPORTED TO KRAIG YU
[2023-06-06] MEDS: budesonide 0.5mg/2ml UD nebule IH SCH ×2 (07:35→19:50)
--- NOTE | 2023-06-06 07:42 | NUR ---
Patient in room ORTHO 4015B. I have received report from AIMEE TALAMANTES and had the opportunity to ask questions and assume patient care.
[2023-06-06] MEDS: pantoprazole 40MG/NS 100ML BAG 100 ML IV SCH (08:37)
[2023-06-06] MEDS: oxyCODONE/APAP 10/325mg tablet PO PRN (08:38)
--- NOTE | 2023-06-06 13:24 | NUR ---
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 Pt placed on clear liquids 06/03 WL PO 50% first two meals though vomiting episodes bloody w/ clots since s/p NG 06/04 not meeting nutrition needs. Pt NG out 9/ PM but has bloody emesis again last night now replaced early this AM per EMR. Two BM's this AM per EMR. Now day 5 essentially without nutrition if to remain NPO w/ NG to suction would benefit from TPN for nutrition needs. Will monitor for further nutrition intervention needs. Rec: 1. once PO; advance diet as medically indicated to low-residue 2. IF to remain NPO vs continue on clears w/ NG suction; TPN for nutrition needs 3. bowel care per rx 4. weekly wt Addendum: 06/06/23 at [address] Amended: Links added.
[2023-06-06] MEDS ORDERED: HYDROmorphone inj. 0.5 MG/0.5 ML DISP.SYRIN IV PRN (14:10)
[2023-06-06] MEDS ORDERED: fentaNYL /PF 50mcg/ml 5ml ampule ONE ×2 (14:58→16:14)
[2023-06-06] MEDS ORDERED: midazolam 1 mg/ML 2ml injection ONE (14:58)
[2023-06-06] MEDS ORDERED: rocuronium 10mg/ml inj IV ONE ×2 (14:58→14:59)
[2023-06-06] MEDS ORDERED: propofol inj 20 ML IV ONE (14:59)
--- NOTE | 2023-06-06 15:00 | NUR ---
3rd attempt at call OR charge desk, no response.
[2023-06-06] MEDS ORDERED: sevoflurane 250ml liquid IH ONE (15:22)
[2023-06-06] MEDS ORDERED: morphine 4 MG/ML inj SYRINge IV PRN (15:25)
[2023-06-06] MEDS ORDERED: proCHLORperazine 10 MG/2 ml inj IV PRN (15:25)
[2023-06-06] MEDS ORDERED: morphine 2 MG/ML inj. syringe IV PRN (15:25)
[2023-06-06] MEDS ORDERED: ringers solution, lacted 1,000 ML IV SCH (15:25)
[2023-06-06] MEDS ORDERED: meperidine/PF 25mg/ml syringe IV PRN ×3 (15:25)
[2023-06-06] MEDS ORDERED: ondansetron/PF 4mg/2ml inj IV PRN (15:25)
[2023-06-06] MEDS ORDERED: ceFOXitin 1000 MG inj ONE ×2 (15:59)
[2023-06-06] MEDS ORDERED: neostigmine methylsulfate 1 MG/ML 10ml vial ONE (18:00)
[2023-06-06] MEDS ORDERED: glycopyrrolate 0.2mg/ml inj ONE (18:01)
--- NOTE | 2023-06-06 18:05 | NUR ---
PT ARRIVED TO RR VIA BED ACCOMPANIED BY DR STANLEY-ANESTHESIA REPORT GIVEN, PT AWAKE AND MOANING ABOUT PAIN - GIVEN MEDS UPON ARRIVAL, VSS, DENIES N/V, NG IN PLACE-CONNECTED TO LOW CONTINUOUS SXN WITH MINIMAL DARK DRAINAGE, LARGE ABD DRESSING TO ABD WITH JERMAIN PRESENT TO LOWER LEFT SIDE-WITH LIGHT RED DRAINAGE NOTED-SXN TO BULB NOTED, DRSG-CDI, F/C PLACED IN OR-DRAINING LIGHT URINE, ART LINE-R WRIST AND MULTIPLE PIVS TO BUE, SCDS ON.
[2023-06-06] MEDS ORDERED: PCA WASTE DOCUMENTATION 1 MG ML MC PRN (18:15)
[2023-06-06] MEDS ORDERED: acetaminophen 1,000mg/100ml IV 100 ML IV ONE (18:15)
[2023-06-06] MEDS ORDERED: naloxone 0.4 mg/ml inj IV PRN (18:15)
--- NOTE | 2023-06-06 18:59 | NUR ---
Problems reprioritized. Patient report given, questions answered & plan of care reviewed with AIMEE TALAMANTES.
[2023-06-06] MEDS: HYDROmorph/NS 0.2 mg/ml PCA 100 ML IV SCH ×3 (19:18→23:00)
--- NOTE | 2023-06-06 19:45 | NUR ---
PT IS AWAKE AND SOME PAIN-BETTER THAN UPON ARRIVAL AFTER MULTIPLE MEDS AND DILAUDID CADD STARTED, VSS, DENIES NAUSEA, NO CHANGES IN ABD DRSG OR JERMAIN, PT EDUCATED REGARDING CADD BUTTON AND HOW TO USE IT-ALL QUESTIONS ANSWERED, NG TO SXN STILL, REPORT CALLED TO RN ALBIN-ALL QUESTIONS ANSWERED, PT TAKEN BACK TO ROOM 4015B, MONITOR ATTACHED, BED LOW AND LOCKED, PRIMARY RN IN TO RECEIVE PT. NOTED THAT CADD SET UP DILAUDID WITH A 0.2MG BASAL RATE/0.2MG Q10MIN DOSE - CADD WAS MANUALLY SET UP D/T NEEDS AND WAS CHECKED BY MULTIPLE RNS AND PHARMACY PRIOR TO TRANSFER TO FLOOR AND RN MADE AWARE OF CURRENT SETTINGS AND ORDER.
[2023-06-06] MEDS: ceFOXitin 2GM-NS 100mL ADDvant 100 ML IV SCH (21:22)
[2023-06-06 22:27] LABS: BASOPHILS # (AUTO) 0.1 X10'3 (0-0.2); BASOPHILS % (AUTO) 0.5 % (0-1); EOSINOPHILS # (AUTO) 0.1 X10'3 (0-0.9); EOSINOPHILS % (AUTO) 0.9 % (0-6); HEMATOCRIT 28.5 % (42.0-52.0); HEMOGLOBIN 9.3 g/dl (14.0-17.9); LYMPHOCYTES # (AUTO) 1.5 X10'3 (1.1-4.8); MEAN CORPUSCULAR HEMOGLOBIN 27.2 PG (27.0-31.0); MEAN CORPUSCULAR HGB CONC 32.5 g/dL (33.0-36.5); MEAN CORPUSCULAR VOLUME 83.7 FL (78-98); MEAN PLATELET VOLUME 7.9 FL (7.4-10.4); MONOCYTES # (AUTO) 0.7 X10'3 (0-0.9); MONOCYTES % (AUTO) 4.7 % (2-12); NEUTROPHILS # (AUTO) 12.6 X10'3 (1.8-7.7); NEUTROPHILS % (AUTO) 83.9 % (42-75); PLATELET COUNT 196 X10'3 (140-440); RED BLOOD COUNT 3.41 X10'6 (4.70-6.10)
[2023-06-07] VITALS (9 sets, daily range): BP systolic 111–135; BP diastolic 66–77; PULSE 85–103; RESP 16–20; TEMP 97.7–98.2; O2SAT 93–98
[2023-06-07] MEDS: HYDROmorph/NS 0.2 mg/ml PCA 100 ML IV SCH ×12 (01:00→23:00)
[2023-06-07] MEDS: albuterol 2.5 MG/3 ML nebule NEB SCH ×4 (02:00→20:18)
[2023-06-07] MEDS: ceFOXitin 2GM-NS 100mL ADDvant 100 ML IV SCH ×2 (02:20→07:19)
--- NOTE | 2023-06-07 06:26 | NUR ---
Problems reprioritized. Patient report given, questions answered & plan of care reviewed with KRAIG YU.
--- NOTE | 2023-06-07 06:40 | NUR ---
Patient in room ORTHO 4015B. I have received report from AIMEE TALAMANTES and had the opportunity to ask questions and assume patient care.
[2023-06-07 08:06] LABS: BASOPHILS # (AUTO) 0.1 X10'3 (0-0.2); BASOPHILS % (AUTO) 0.5 % (0-1); EOSINOPHILS # (AUTO) 0.2 X10'3 (0-0.9); EOSINOPHILS % (AUTO) 1.5 % (0-6); LYMPHOCYTES # (AUTO) 1.2 X10'3 (1.1-4.8); LYMPHOCYTES % (AUTO) 7.9 % (21-51); MEAN CORPUSCULAR HEMOGLOBIN 27.8 PG (27.0-31.0); MEAN CORPUSCULAR HGB CONC 32.4 g/dL (33.0-36.5); MEAN CORPUSCULAR VOLUME 85.9 FL (78-98); MEAN PLATELET VOLUME 7.8 FL (7.4-10.4); MONOCYTES # (AUTO) 0.9 X10'3 (0-0.9); MONOCYTES % (AUTO) 6.2 % (2-12); NEUTROPHILS # (AUTO) 12.7 X10'3 (1.8-7.7); NEUTROPHILS % (AUTO) 83.9 % (42-75); PLATELET COUNT 248 X10'3 (140-440); RED BLOOD COUNT 3.61 X10'6 (4.70-6.10); WHITE BLOOD COUNT 15.1 X10'3 (4.5-11.0)
[2023-06-07] MEDS: budesonide 0.5mg/2ml UD nebule IH SCH ×2 (08:22→20:18)
[2023-06-07] MEDS: pantoprazole 40MG/NS 100ML BAG 100 ML IV SCH (09:25)
[2023-06-07] MEDS: normal saline 1000ml 1,000 ML IV SCH ×3 (13:10→21:13)
[2023-06-07] MEDS ORDERED: PCA WASTE DOCUMENTATION 1 MG ML MC SCH (17:45)
--- NOTE | 2023-06-07 18:00 | NUR ---
Patient in room ORTHO 4015. I have received report from AIMEE Silver and had the opportunity to ask questions and assume patient care.
--- NOTE | 2023-06-07 18:59 | NUR ---
Problems reprioritized. Patient report given, questions answered & plan of care reviewed with AIMEE HERRERA.
[2023-06-07] MEDS ORDERED: PCA WASTE DOCUMENTATION 1 MG ML MC PRN (20:00)
[2023-06-08] VITALS (7 sets, daily range): BP systolic 100–116; BP diastolic 55–61; PULSE 82–94; RESP 14–18; TEMP 98.2–99.2; O2SAT 94–99
[2023-06-08] MEDS: HYDROmorph/NS 0.2 mg/ml PCA 100 ML IV SCH ×9 (00:57→16:14)
[2023-06-08] MEDS: albuterol 2.5 MG/3 ML nebule NEB SCH ×3 (02:00→20:09)
--- NOTE | 2023-06-08 06:00 | NUR ---
Patient in room ORTHO 4015. I have received report from Lupe and had the opportunity to ask questions and assume patient care.
--- NOTE | 2023-06-08 06:07 | NUR ---
Problems reprioritized. Patient report given, questions answered & plan of care reviewed with AIMEE Caballero.
[2023-06-08] MEDS: normal saline 1000ml 1,000 ML IV SCH ×2 (06:55→17:20)
[2023-06-08 06:59] LABS: ISTAT ANION GAP 15 (8-12); ISTAT BUN 9 mg/dL (7-18); ISTAT CL 104 mmol/L (99-107); ISTAT CREATININE 0.7 mg/dL (0.8-1.3); ISTAT GLUCOSE 113 mg/dL (70-104); ISTAT HGB 8.2 g/dl (14.0-17.9); ISTAT Hct 24 %PCV (42-52); ISTAT IONIZED CALCIUM 1.13 mmol/L (1.03-1.32); ISTAT K 3.9 mmol/L (3.5-5.1); ISTAT NA 141 mmol/L (135-145); ISTAT TOTAL CO2 22 mmol/L (24-32); ISTAT eGFR > 90 ML/MIN; POC BUN/CREATININE RATIO 12.9 (5.4-32.0)
[2023-06-08] MEDS: budesonide 0.5mg/2ml UD nebule IH SCH ×2 (07:54→20:08)
[2023-06-08] MEDS: pantoprazole 40MG/NS 100ML BAG 100 ML IV SCH (07:56)
[2023-06-08] MEDS ORDERED: oxyCODONE/APAP 5-325mg tablet PO PRN (17:05)
[2023-06-08] MEDS: oxyCODONE/APAP 10/325mg tablet PO PRN ×2 (17:18→21:23)
--- NOTE | 2023-06-08 18:09 | NUR ---
Problems reprioritized. Patient report given, questions answered & plan of care reviewed with Sita Wade
--- NOTE | 2023-06-08 18:10 | NUR ---
Patient in room ORTHO 4015. I have received report from AIMEE PRADHAN and had the opportunity to ask questions and assume patient care.
[2023-06-09] VITALS (10 sets, daily range): BP systolic 104–110; BP diastolic 58–67; PULSE 82–94; RESP 16–18; TEMP 97.8–98.6; O2SAT 16–98
[2023-06-09] MEDS: albuterol 2.5 MG/3 ML nebule NEB SCH ×4 (02:00→19:48)
[2023-06-09] MEDS: oxyCODONE/APAP 10/325mg tablet PO PRN ×5 (02:46→20:48)
[2023-06-09] MEDS: normal saline 1000ml 1,000 ML IV SCH ×3 (02:49→14:52)
--- NOTE | 2023-06-09 06:22 | NUR ---
Problems reprioritized. Patient report given, questions answered & plan of care reviewed with AIMEE BLACK.
[2023-06-09] MEDS: pantoprazole 40MG/NS 100ML BAG 100 ML IV SCH (07:47)
[2023-06-09] MEDS: budesonide 0.5mg/2ml UD nebule IH SCH ×2 (08:00→19:48)
--- NOTE | 2023-06-09 08:33 | NUR ---
pt. refused 0800 svn due to abdominal pain and wanted to sleep. no resp. distress observed at this time
--- NOTE | 2023-06-09 10:12 | NUR ---
Assessment complete. Primary MECHANICAL SYSTEMS CONTROL ENGINEER Karla will be continuing patient care.
--- NOTE | 2023-06-09 10:54 | NUR ---
Texted Dr Galicia regarding possibly advancing patients diet.
--- NOTE | 2023-06-09 11:27 | NUR ---
Reassessment: Per EMR pt POD #3 s/p exploratory laparotomy with ligation of bleeding site in the stomach and cystogastrostomy. Pt documented to be NPO 06/06-06/08 with diet advancement to clear liquids starting dinner 06/08. Per EMR pt with mostly 0% PO intake, now on day 8 with inadequate nutrition intake r/t insufficient diet order. D/w RN recommendation for PN if unable to advance diet. Pt now on a full liquid diet. Recommend Ensure Enlive TID to optimize nutrient intake given prolonged poor PO intake and pt remains on an insufficient diet. ONS to be sent pending physician approval in EMR. LBM 06/06 per EMR. Will continue to follow closely. Recommendations: 1. Advance to low fiber diet as medically indicated 2. Ensure Enlive TID, pending physician approval in EMR 3. Consider PN IF unable to advance diet further 4. Bowel care per physician 5. Weekly scaled weights Addendum: 06/09/23 at [address] Amended: Links added.
[2023-06-09 13:07] LABS: BASOPHILS % (AUTO) 0.3 % (0-1); EOSINOPHILS # (AUTO) 0.3 X10'3 (0-0.9); EOSINOPHILS % (AUTO) 3.4 % (0-6); LYMPHOCYTES # (AUTO) 0.7 X10'3 (1.1-4.8); LYMPHOCYTES % (AUTO) 8.8 % (21-51); MEAN CORPUSCULAR HEMOGLOBIN 27.7 PG (27.0-31.0); MEAN CORPUSCULAR VOLUME 86.6 FL (78-98); MEAN PLATELET VOLUME 7.6 FL (7.4-10.4); MONOCYTES # (AUTO) 0.6 X10'3 (0-0.9); MONOCYTES % (AUTO) 7.5 % (2-12); NEUTROPHILS # (AUTO) 6.1 X10'3 (1.8-7.7); PLATELET COUNT 189 X10'3 (140-440); RED BLOOD COUNT 2.34 X10'6 (4.70-6.10); RED CELL DISTRIBUTION WIDTH 19.4 % (11.5-14.5); WHITE BLOOD COUNT 7.7 X10'3 (4.5-11.0)
[2023-06-09 13:25] LABS: ALBUMIN 1.6 G/DL (3.4-5.0); ANION GAP 6 (8-16); BLOOD UREA NITROGEN 7 MG/DL (7-18); BUN/CREATININE RATIO 10.1 (10.0-20.0); CALCIUM 7.6 MG/DL (8.5-10.1); CHLORIDE 103 MMOL/L (99-107); CREATININE 0.69 MG/DL (0.60-1.10); GLUCOSE 99 MG/DL (70-104); POTASSIUM 3.3 MMOL/L (3.5-5.1); SODIUM 135 MMOL/L (135-145); TOTAL CARBON DIOXIDE 26.5 MMOL/L (24-32); eCRCL 144 ML/MIN; eGFR > 90 ML/MIN
[2023-06-09 13:49] LABS: HEMATOCRIT 20.3 % (42.0-52.0); HEMOGLOBIN 6.5 g/dl (14.0-17.9)
--- NOTE | 2023-06-09 14:04 | NUR ---
Critical reported by lab, drawn x2 to verify H&H. LVM for MD to return call r/t critical values. Charge aware.
--- NOTE | 2023-06-09 14:06 | NUR ---
pt. refused 1400 SVN. BS clear, R/A SPO@ 97%. No SOB observed
[2023-06-09 14:38] LABS: HEMOGLOBIN 7.1 g/dl (14.0-17.9); MEAN CORPUSCULAR HGB CONC 32.7 g/dL (33.0-36.5); MEAN CORPUSCULAR VOLUME 85.7 FL (78-98); MEAN PLATELET VOLUME 7.1 FL (7.4-10.4); PLATELET COUNT 211 X10'3 (140-440); RED BLOOD COUNT 2.53 X10'6 (4.70-6.10); RED CELL DISTRIBUTION WIDTH 18.9 % (11.5-14.5); WHITE BLOOD COUNT 8.2 X10'3 (4.5-11.0)
[2023-06-09 14:40] LABS: HEMATOCRIT 21.7 % (42.0-52.0)
--- NOTE | 2023-06-09 14:41 | NUR ---
Repeat draw 7.1 hgb 21.7 md Dannie notified. Type and screen drawn
[2023-06-09] MEDS: lactose-reduced food (Ensure Enlive) - 237ml bottle PO SCH ×2 (14:52→18:01)
[2023-06-09 16:53] LABS: ANISOCYTOSIS 2+; PLATELET ESTIMATE NORMAL
[2023-06-09 16:55] LABS: POLYCHROMASIA 1+
--- NOTE | 2023-06-09 18:00 | NUR ---
I have reviewed and agree with interventions, assessments, and documentation by Karla Stover LVN.
--- NOTE | 2023-06-09 18:55 | NUR ---
Patient in room ORTHO 4015. I have received report from WAYNE YU and had the opportunity to ask questions and assume patient care.
[2023-06-09] MEDS ORDERED: potassium Cl 40MEQ/1/2NS 520ml 520 ML IV PRN ×2 (19:25)
[2023-06-09] MEDS ORDERED: potassium Cl 20 mEq SR tablet PO PRN (19:25)
[2023-06-09] MEDS: K and/or MAG REPLACEMENT MC SCH (20:00)
[2023-06-09 22:16] LABS: HEMATOCRIT 22.6 % (42.0-52.0); HEMOGLOBIN 7.2 g/dl (14.0-17.9); MEAN CORPUSCULAR HEMOGLOBIN 27.3 PG (27.0-31.0); MEAN CORPUSCULAR HGB CONC 31.9 g/dL (33.0-36.5); MEAN CORPUSCULAR VOLUME 85.4 FL (78-98); MEAN PLATELET VOLUME 7.8 FL (7.4-10.4); PLATELET COUNT 221 X10'3 (140-440); RED BLOOD COUNT 2.65 X10'6 (4.70-6.10); RED CELL DISTRIBUTION WIDTH 18.8 % (11.5-14.5); WHITE BLOOD COUNT 8.8 X10'3 (4.5-11.0)
--- NOTE | 2023-06-09 22:21 | NUR ---
DR PIERCE NOTIFIED OF REPEAT 1800 H/H COMING BACK AT 7.2/22.6
[2023-06-09] MEDS: potassium Cl 20 mEq SR tablet PO PRN (22:25)
[2023-06-10] VITALS (12 sets, daily range): BP systolic 103–115; BP diastolic 59–68; PULSE 79–105; RESP 15–20; TEMP 97.7–99.5; O2SAT 95–100
[2023-06-10] MEDS: albuterol 2.5 MG/3 ML nebule NEB SCH ×4 (01:38→19:57)
[2023-06-10] MEDS: potassium Cl 20 mEq SR tablet PO PRN ×4 (02:28→19:22)
--- NOTE | 2023-06-10 02:34 | NUR ---
Problems reprioritized. Patient report given, questions answered & plan of care reviewed with DENAE YU.
[2023-06-10] MEDS: oxyCODONE/APAP 10/325mg tablet PO PRN ×4 (05:22→19:22)
--- NOTE | 2023-06-10 06:41 | NUR ---
Report to CHASITY Ferrer.
[2023-06-10] MEDS: budesonide 0.5mg/2ml UD nebule IH SCH ×2 (07:56→19:57)
[2023-06-10] MEDS: K and/or MAG REPLACEMENT MC SCH ×2 (08:00→20:00)
[2023-06-10] MEDS: lactose-reduced food (Ensure Enlive) - 237ml bottle PO SCH ×3 (08:00→18:00)
[2023-06-10] MEDS: pantoprazole 40MG/NS 100ML BAG 100 ML IV SCH (08:24)
[2023-06-10 10:47] LABS: ALBUMIN 1.7 G/DL (3.4-5.0); ANION GAP 6 (8-16); BLOOD UREA NITROGEN 6 MG/DL (7-18); BUN/CREATININE RATIO 8.3 (10.0-20.0); CHLORIDE 104 MMOL/L (99-107); CREATININE 0.72 MG/DL (0.60-1.10); GLUCOSE 138 MG/DL (70-104); POTASSIUM 3.4 MMOL/L (3.5-5.1); SODIUM 137 MMOL/L (135-145); TOTAL CARBON DIOXIDE 27.3 MMOL/L (24-32); eCRCL 138 ML/MIN; eGFR > 90 ML/MIN
--- NOTE | 2023-06-10 15:07 | NUR ---
ATHLETIC SHOE DESIGNER documentation: I have reviewed and agree with all interventions, assessments performed and documented by Magdy Dumont LVN.
[2023-06-11] VITALS (11 sets, daily range): BP systolic 105–118; BP diastolic 54–65; PULSE 79–101; RESP 15–20; TEMP 97.6–98.2; O2SAT 95–100
[2023-06-11] MEDS: albuterol 2.5 MG/3 ML nebule NEB SCH ×4 (02:00→19:40)
[2023-06-11] MEDS: oxyCODONE/APAP 10/325mg tablet PO PRN ×4 (02:00→19:35)
--- NOTE | 2023-06-11 06:14 | NUR ---
I have received report from AIMEE Bang and had the opportunity to ask questions and assume patient care. No distress at this time.
[2023-06-11] MEDS: K and/or MAG REPLACEMENT MC SCH ×2 (08:00→20:00)
--- NOTE | 2023-06-11 08:02 | NUR ---
Notified MD patient has some crackles in the right/ left frontal lobe w/ some wheezing. Patients' O2 is stable at 99% RA, no SOB. Occasional coughing episodes. States he feels like he needs to cough stuff up. Educated on splinting the abdominal cavity area to prevent discomfort while coughing. CTM. IS devise provided.
[2023-06-11] MEDS: lactose-reduced food (Ensure Enlive) - 237ml bottle PO SCH ×3 (08:09→18:00)
--- NOTE | 2023-06-11 08:12 | NUR ---
Paged RT to provide a breathing tx for pt. Encouraged ambulating.
[2023-06-11 08:16] LABS: BASOPHILS % (AUTO) 0.3 % (0-1); EOSINOPHILS # (AUTO) 0.2 X10'3 (0-0.9); EOSINOPHILS % (AUTO) 3.4 % (0-6); HEMATOCRIT 22.7 % (42.0-52.0); HEMOGLOBIN 7.2 g/dl (14.0-17.9); LYMPHOCYTES # (AUTO) 0.9 X10'3 (1.1-4.8); LYMPHOCYTES % (AUTO) 14.9 % (21-51); MEAN CORPUSCULAR HEMOGLOBIN 27.3 PG (27.0-31.0); MEAN CORPUSCULAR VOLUME 85.6 FL (78-98); MEAN PLATELET VOLUME 7.7 FL (7.4-10.4); MONOCYTES # (AUTO) 0.5 X10'3 (0-0.9); MONOCYTES % (AUTO) 8.4 % (2-12); NEUTROPHILS # (AUTO) 4.3 X10'3 (1.8-7.7); PLATELET COUNT 261 X10'3 (140-440); RED BLOOD COUNT 2.65 X10'6 (4.70-6.10); RED CELL DISTRIBUTION WIDTH 18.3 % (11.5-14.5); WHITE BLOOD COUNT 5.9 X10'3 (4.5-11.0)
[2023-06-11] MEDS: budesonide 0.5mg/2ml UD nebule IH SCH ×2 (08:24→19:40)
[2023-06-11 08:34] LABS: ALBUMIN 1.9 G/DL (3.4-5.0); ANION GAP 6 (8-16); BLOOD UREA NITROGEN 6 MG/DL (7-18); BUN/CREATININE RATIO 7.9 (10.0-20.0); CALCIUM 8.5 MG/DL (8.5-10.1); CHLORIDE 102 MMOL/L (99-107); CREATININE 0.76 MG/DL (0.60-1.10); GLUCOSE 109 MG/DL (70-104); MAGNESIUM 1.8 MG/DL (1.5-2.4); POTASSIUM 3.4 MMOL/L (3.5-5.1); SODIUM 138 MMOL/L (135-145); TOTAL CARBON DIOXIDE 29.7 MMOL/L (24-32); eCRCL 130 ML/MIN; eGFR > 90 ML/MIN
[2023-06-11] MEDS: potassium Cl 20 mEq SR tablet PO PRN ×3 (09:21→16:42)
[2023-06-11] MEDS: pantoprazole 40MG/NS 100ML BAG 100 ML IV SCH (09:37)
--- NOTE | 2023-06-11 14:32 | NUR ---
PARAPROFESSIONAL AIDE documentation: I have reviewed and agree with all interventions, assessments performed and documented by Cornelia Pickett LVN.
--- NOTE | 2023-06-11 14:46 | NUR ---
1400 SVN refused by pt. no resp distress observed
[2023-06-11] MEDS: normal saline 1000ml 1,000 ML IV SCH (15:03)
[2023-06-12] MEDS: oxyCODONE/APAP 10/325mg tablet PO PRN ×2 (01:06→07:31)
[2023-06-12] MEDS: albuterol 2.5 MG/3 ML nebule NEB SCH (02:00)
--- NOTE | 2023-06-12 02:43 | NUR ---
I agree with RESERVOIR ENGINEERING ADVISOR physical assessment.
--- NOTE | 2023-06-12 04:44 | NUR ---
Problems reprioritized. Patient report given, questions answered & plan of care reviewed with AIMEE Caballero.
--- NOTE | 2023-06-12 04:53 | NUR ---
Patient in room ORTHO 4015. I have received report from Sanchez and had the opportunity to ask questions and assume patient care.
[2023-06-12 06:15] VITALS: BP 100/65; PULSE 78; RESP 16; TEMP 97.6; O2SAT 97
[2023-06-12] MEDS: K and/or MAG REPLACEMENT MC SCH (07:11)
[2023-06-12] MEDS ORDERED: OXYC-138 PO (07:20)
[2023-06-12] MEDS ORDERED: pantoprazole 40mg Tablet.DR PO SCH (07:30)
[2023-06-12 07:38] VITALS: RESP 16; O2SAT 97
[2023-06-12] MEDS: budesonide 0.5mg/2ml UD nebule IH SCH (07:38)
[2023-06-12 07:40] VITALS: PULSE 76; RESP 16; O2SAT 98
[2023-06-12 07:43] VITALS: PULSE 86; RESP 18
[2023-06-12] MEDS: lactose-reduced food (Ensure Enlive) - 237ml bottle PO SCH (08:01)
--- NOTE | 2023-06-12 09:17 | NUR ---
Reassessment: PO intake has significantly improved since diet was advanced from clear liquids. Pt documented with average 85% PO intake of full liquid diet and average 63% PO intake of regular diet (advanced starting breakfast 06/11). Pt receiving an Ensure Enlive TID with great acceptance, documented with 0% PO intake of two ONS however with average 96% of six ONS. Overall pt meeting estimated nutrient needs at this time. LBM 06/10 per EMR. No further nutrition intervention implemented at this time. Will continue to follow and make recommendations as appropriate. Recommendations: 1. Continue regular diet 2. Ensure Enlive TID; monitor trends in meal intake and need to adjust frequency 3. Bowel care per physician 4. Weekly scaled weights Addendum: 06/12/23 at [address] Amended: Links added.
[2023-06-12 11:00] VITALS: BP 113/69; PULSE 76; RESP 16; TEMP 98.6; O2SAT 97
--- NOTE | 2023-06-12 13:06 | NUR ---
Reviewed discharge instructions with patient. Patient verbalized understanding. Patient had showered, dressings were changed and patient got dressed. Patient's sister arrived to pick the patient up and drive him home to [place]. All of patient's belongings were sent with patient. Patient has a follow up with the surgeon on 06/21/23.
== END 2023-06-12 12:30 | disposition home or self-care (01) | DRG 260 ==
LOC: PAS IN 09:08 → EDSTATUS 13:30 → ORTHO 4S 16:20
PROVIDERS: ADMIT Surgery; ATTEND Surgery
PROC: 0DNW4ZZ Release Peritoneum, Percutaneous Endoscopic Approach (ICD-10-PCS; 2023-06-01)
PROC: 8E0W4CZ Robotic Assisted Procedure of Trunk Region, Percutaneous Endoscopic Approach (ICD-10-PCS; 2023-06-01)
PROC: 0F9G40Z Drainage of Pancreas with Drainage Device, Percutaneous Endoscopic Approach (ICD-10-PCS; principal; 2023-06-01 12:14)
PROC: 30233N1 Transfusion of Nonautologous Red Blood Cells into Peripheral Vein, Percutaneous Approach (ICD-10-PCS; 2023-06-04)
PROC: 0DV Gastrointestinal System, Restriction (ICD-10-PCS; 2023-06-06)
DX: K86.2 Cyst of pancreas (principal); K66.0 Peritoneal adhesions (postprocedural) (postinfection); Z79.01 Long term (current) use of anticoagulants; Z79.899 Other long term (current) drug therapy; Z88.8 Allergy status to other drugs, medicaments and biological substances
CPT/HCPCS: 36415; 36430; 74177; 80047; 80048; 80053; 82948; 83735; 85008; 85025; 85027; 86885; 86900; 86901; 86920; 87070; 87075; 87081; 87102; 93005; 94640; 94760; 97110; 97161; 97530; A4215; A4615; A4618; A6258; A6407; A7000; C1758; C9113; G0378; J0131; J0690; J0694; J1100; J1170; J1650; J1885; J2175; J2250; J2270; J2405; J2704; J2710; J3010; J3490; J7030; J7040; J7120; P9016; Q9967

== ENCOUNTER 2024-03-14 12:03 | Inpatient (IN) | payer MEDICAID ==
[2024-03-14] VITALS (21 sets, daily range): BP systolic 100–150; BP diastolic 64–96; PULSE 50–77; RESP 11–22; TEMP 97.6–98.6; O2SAT 85–99
[~2024-03-14] VITALS: Ht 180.3 cm; Wt 133.0 kg
[~2024-03-14 12:03] MED LIST changes: -APIX5TAB3 PO; +ESCI20TA PO; +GABA600T13 PO; -OXYC-138 PO; +OXYC1TAB15 PO; -famotidine 20mg tablet PO ONE; -ringers solution, lacted 1,000 ML IV SCH
[2024-03-14] MEDS: famotidine 20mg tablet PO ONE (13:07)
[2024-03-14] MEDS: ringers solution, lacted 1,000 ML IV SCH ×2 (13:08→14:10)
[2024-03-14] MEDS ORDERED: sevoflurane 250ml liquid IH ONE (14:08)
[2024-03-14] MEDS ORDERED: HYDROmorphone/PF 0.2 MG/ML SYRINGE IV PRN (14:10)
[2024-03-14] MEDS ORDERED: morphine 2 MG/ML inj. syringe IV PRN (14:10)
[2024-03-14] MEDS ORDERED: labetalol 20mg/4ml (5mg/ml) syringe IV PRN (14:10)
[2024-03-14] MEDS ORDERED: morphine 4 MG/ML inj SYRINge IV PRN (14:10)
[2024-03-14] MEDS ORDERED: hydrALAZINE 20mg/ml inj. IV PRN (14:10)
[2024-03-14] MEDS ORDERED: proCHLORperazine 10 MG/2 ml inj IV PRN (14:10)
[2024-03-14] MEDS ORDERED: meperidine/PF 25mg/ml syringe IV PRN (14:10)
[2024-03-14 14:17] LABS: ISTAT IONIZED CALCIUM 1.19 mmol/L (1.03-1.32); ISTAT K 4.5 mmol/L (3.5-5.1)
[2024-03-14] MEDS ORDERED: midazolam 1 mg/ML 2ml injection ONE (14:19)
[2024-03-14] MEDS ORDERED: fentaNYL /PF 50mcg/ml 5ml ampule ONE (14:19)
[2024-03-14] MEDS: Cefazolin 3 GM/100ML NS IVPB 100 ML IV ONE (14:30)
[2024-03-14] MEDS: BUPIVACAINE liposomal/PF 13.3 MG/ML vial IM ONE (15:20)
[2024-03-14] MEDS: BUPIVAcaine/PF 2.5mg/ml (0.25%) 10ml vial ONE (15:21)
[2024-03-14] MEDS: LIDOcaine 1% (10mg/ml)w/preservative inj. 20ml MDV ONE (15:22)
[2024-03-14] MEDS: BUPIVAcaine 2.5mg/ml inj 50ml vial (contains preservative) ONE (15:22)
[2024-03-14] MEDS ORDERED: propofol inj 20 ML IV ONE ×2 (16:19)
[2024-03-14] MEDS ORDERED: ondansetron/PF 4mg/2ml inj ONE (16:19)
[2024-03-14] MEDS ORDERED: rocuronium 10mg/ml inj IV ONE (16:19)
[2024-03-14] MEDS ORDERED: dexamethasone sod phosphate 4mg/ml inj. ONE (16:19)
[2024-03-14] MEDS ORDERED: LIDOcaine 1%/PF 5ML 10 MG/ML VIAL ONE (16:19)
[2024-03-14] MEDS ORDERED: neostigmine methylsulfate 1 MG/ML 10ml vial ONE (16:20)
[2024-03-14] MEDS ORDERED: glycopyrrolate 0.2mg/ml inj ONE (16:20)
[2024-03-14] MEDS ORDERED: ondansetron/PF 4mg/2ml inj IV PRN (16:30)
[2024-03-14] MEDS ORDERED: naloxone 0.4 mg/ml inj IV PRN (16:30)
[2024-03-14] MEDS: normal saline 1000ml 1,000 ML IV SCH (16:30)
[2024-03-14] MEDS: HYDROmorphone/PF 0.2 MG/ML SYRINGE IV PRN (16:43)
[2024-03-14] MEDS: HYDROmorph/NS 0.2 mg/ml PCA 100 ML IV SCH (17:00)
[2024-03-14] MEDS: ondansetron/PF 4mg/2ml inj IV PRN (17:39)
[2024-03-14] MEDS: acetaminophen 1,000mg/100ml IV 100 ML IV ONE (17:45)
[2024-03-14] MEDS ORDERED: albuterol 2.5 MG/3 ML nebule NEB SCH (19:00)
[2024-03-14] MEDS: albuterol 2.5 MG/3 ML nebule NEB SCH (20:06)
[2024-03-14] MEDS: budesonide 0.5mg/2ml UD nebule IH SCH (20:06)
[2024-03-14 20:49] LABS: BASOPHILS # (AUTO) 0.1 X10'3 (0-0.2); BASOPHILS % (AUTO) 0.6 % (0-1); EOSINOPHILS # (AUTO) 0.1 X10'3 (0-0.9); EOSINOPHILS % (AUTO) 0.6 % (0-6); LYMPHOCYTES # (AUTO) 0.4 X10'3 (1.1-4.8); MEAN CORPUSCULAR HEMOGLOBIN 25.8 PG (27.0-31.0); MEAN CORPUSCULAR HGB CONC 32.3 g/dL (33.0-36.5); MEAN CORPUSCULAR VOLUME 79.9 FL (78-98); MEAN PLATELET VOLUME 7.9 FL (7.4-10.4); MONOCYTES # (AUTO) 0.1 X10'3 (0-0.9); MONOCYTES % (AUTO) 0.9 % (2-12); NEUTROPHILS # (AUTO) 10.6 X10'3 (1.8-7.7); NEUTROPHILS % (AUTO) 93.9 % (42-75); PRE OP HEMATOCRIT 41.4 % (42.0-52.0); PRE OP HEMOGLOBIN 13.3 g/dL (14.0-17.9); PRE OP PLATELET COUNT 238 X10'3 (140-440); PRE OP WHITE BLOOD COUNT 11.3 10'3 (4.8-10.8); RED BLOOD COUNT 5.18 X10'6 (4.70-6.10); RED CELL DISTRIBUTION WIDTH 17.1 % (11.5-14.5)
[2024-03-14] MEDS: heparin, porcine 5000 units/ml vial SQ SCH (20:50)
[2024-03-14] MEDS: sennosides/docusate sodium tablet PO SCH (20:50)
[2024-03-14 20:51] LABS: ALBUMIN 3.2 G/DL (3.4-5.0); ALBUMIN/GLOBULIN RATIO 0.6 (1.1-1.5); ALKALINE PHOSPHATASE 138 IU/L (46-116); BLOOD UREA NITROGEN 13 MG/DL (7-18); BUN/CREATININE RATIO 11.3 (10.0-20.0); CALCIUM 8.2 MG/DL (8.5-10.1); CHLORIDE 101 MMOL/L (99-107); CREATININE 1.15 MG/DL (0.60-1.10); PRE OP ALT 37 U/L (30-65); PRE OP ANION GAP 8 (8-16); PRE OP AST 22 U/L (10-37); PRE OP BILIRUB, TOTAL 0.5 MG/DL (0.0-1.0); PRE OP GLUCOSE 126 MG/DL (70-104); PRE OP SODIUM 135 MMOL/L (135-145); TOTAL CARBON DIOXIDE 25.8 MMOL/L (24-32); TOTAL PROTEIN 8.2 G/DL (6.4-8.2); eCRCL 83 ML/MIN; eGFR 68 ML/MIN
[2024-03-14] MEDS: docusate sod 100mg capsule PO SCH (20:51)
[2024-03-14] MEDS: potassium CL 20mEq in D5-1/2NS 1,000 ML IV SCH (23:46)
[2024-03-14] MEDS: gabapentin 300mg capsule PO SCH (23:47)
[2024-03-15] VITALS (13 sets, daily range): BP systolic 107–161; BP diastolic 66–83; PULSE 47–71; RESP 14–20; TEMP 97.2–97.9; O2SAT 93–96
[2024-03-15 06:36] LABS: BASOPHILS % (AUTO) 0.1 % (0-1); EOSINOPHILS % (AUTO) 0 % (0-6); HEMATOCRIT 41.7 % (42.0-52.0); HEMOGLOBIN 13.4 g/dl (14.0-17.9); LYMPHOCYTES # (AUTO) 0.7 X10'3 (1.1-4.8); LYMPHOCYTES % (AUTO) 6.6 % (21-51); MEAN CORPUSCULAR HEMOGLOBIN 25.8 PG (27.0-31.0); MEAN CORPUSCULAR HGB CONC 32.1 g/dL (33.0-36.5); MEAN CORPUSCULAR VOLUME 80.4 FL (78-98); MEAN PLATELET VOLUME 7.8 FL (7.4-10.4); MONOCYTES # (AUTO) 0.3 X10'3 (0-0.9); MONOCYTES % (AUTO) 3.2 % (2-12); NEUTROPHILS # (AUTO) 9.4 X10'3 (1.8-7.7); NEUTROPHILS % (AUTO) 90.1 % (42-75); PLATELET COUNT 253 X10'3 (140-440); RED BLOOD COUNT 5.19 X10'6 (4.70-6.10); RED CELL DISTRIBUTION WIDTH 17.1 % (11.5-14.5); WHITE BLOOD COUNT 10.5 X10'3 (4.5-11.0)
[2024-03-15 06:46] LABS: ALBUMIN 3.1 G/DL (3.4-5.0); ANION GAP 7 (8-16); BLOOD UREA NITROGEN 12 MG/DL (7-18); BUN/CREATININE RATIO 11.9 (10.0-20.0); CALCIUM 8.1 MG/DL (8.5-10.1); CHLORIDE 100 MMOL/L (99-107); CREATININE 1.01 MG/DL (0.60-1.10); GLUCOSE 140 MG/DL (70-104); POTASSIUM 5.1 MMOL/L (3.5-5.1); SODIUM 134 MMOL/L (135-145); TOTAL CARBON DIOXIDE 27.1 MMOL/L (24-32); eCRCL 94 ML/MIN; eGFR 79 ML/MIN
[2024-03-15] MEDS: pantoprazole 40mg Tablet.DR PO SCH (07:50)
[2024-03-15] MEDS: ESCITALOPRAM 10 mg tablet 10 MG TABLET PO SCH (07:51)
[2024-03-16 06:00] VITALS: BP 134/89; PULSE 59; RESP 18; TEMP 97.4; O2SAT 95
[2024-03-16 06:50] LABS: BASOPHILS % (AUTO) 0.3 % (0-1); EOSINOPHILS # (AUTO) 0.1 X10'3 (0-0.9); EOSINOPHILS % (AUTO) 0.9 % (0-6); HEMATOCRIT 39.8 % (42.0-52.0); HEMOGLOBIN 12.7 g/dl (14.0-17.9); LYMPHOCYTES # (AUTO) 1.3 X10'3 (1.1-4.8); LYMPHOCYTES % (AUTO) 16.8 % (21-51); MEAN CORPUSCULAR HEMOGLOBIN 25.8 PG (27.0-31.0); MEAN CORPUSCULAR HGB CONC 31.9 g/dL (33.0-36.5); MEAN CORPUSCULAR VOLUME 81.1 FL (78-98); MEAN PLATELET VOLUME 7.6 FL (7.4-10.4); MONOCYTES # (AUTO) 0.6 X10'3 (0-0.9); NEUTROPHILS # (AUTO) 5.8 X10'3 (1.8-7.7); PLATELET COUNT 229 X10'3 (140-440); RED BLOOD COUNT 4.91 X10'6 (4.70-6.10); RED CELL DISTRIBUTION WIDTH 17.3 % (11.5-14.5); WHITE BLOOD COUNT 7.8 X10'3 (4.5-11.0)
[2024-03-16 07:00] LABS: ANION GAP 7 (8-16); BLOOD UREA NITROGEN 10 MG/DL (7-18); BUN/CREATININE RATIO 12.7 (10.0-20.0); CALCIUM 8.3 MG/DL (8.5-10.1); CHLORIDE 103 MMOL/L (99-107); CREATININE 0.79 MG/DL (0.60-1.10); GLUCOSE 111 MG/DL (70-104); POTASSIUM 4.6 MMOL/L (3.5-5.1); SODIUM 139 MMOL/L (135-145); TOTAL CARBON DIOXIDE 28.6 MMOL/L (24-32); eCRCL 120 ML/MIN; eGFR > 90 ML/MIN
[2024-03-16 07:40] VITALS: PULSE 58; RESP 18; O2SAT 94
[2024-03-16 07:52] VITALS: PULSE 58; RESP 16
[2024-03-16 10:00] VITALS: BP 119/74; PULSE 68; RESP 16; TEMP 98.4; O2SAT 94
[2024-03-16] MEDS ORDERED: oxyCODONE/APAP 10/325mg tablet PO PRN (10:10)
[2024-03-16] MEDS: oxyCODONE/APAP 10/325mg tablet PO ONE (10:23)
[2024-03-16] MEDS: PCA WASTE DOCUMENTATION 1 MG ML MC SCH (10:32)
[2024-03-16] MEDS ORDERED: OXYC1TAB17 PO (12:00)
== END 2024-03-16 13:18 | disposition home or self-care (01) | DRG 227 ==
LOC: PAS IN 12:03 → SUR 3N 18:45
PROVIDERS: ADMIT Surgery; ATTEND Surgery
PROC: 3E0T3BZ Introduction of Anesthetic Agent into Peripheral Nerves and Plexi, Percutaneous Approach (ICD-10-PCS; 2024-03-14)
PROC: 8E0W4CZ Robotic Assisted Procedure of Trunk Region, Percutaneous Endoscopic Approach (ICD-10-PCS; 2024-03-14)
PROC: 0DNU4ZZ Release Omentum, Percutaneous Endoscopic Approach (ICD-10-PCS; 2024-03-14)
PROC: 0WUF4JZ Supplement Abdominal Wall with Synthetic Substitute, Percutaneous Endoscopic Approach (ICD-10-PCS; principal; 2024-03-14 14:08)
DX: K43.0 Incisional hernia with obstruction, without gangrene (principal); E66.9 Obesity, unspecified; J45.909 Unspecified asthma, uncomplicated; K66.0 Peritoneal adhesions (postprocedural) (postinfection); Z79.51 Long term (current) use of inhaled steroids; Z68.41 Body mass index [BMI] 40.0-44.9, adult; Z87.891 Personal history of nicotine dependence; Z88.8 Allergy status to other drugs, medicaments and biological substances
CPT/HCPCS: 36415; 80047; 80048; 80053; 82948; 85025; 87081; 94640; 94760; A4215; A4314; A4615; A4618; A6258; C1781; C9290; G0378; J0131; J0690; J1100; J1170; J1644; J2250; J2405; J2704; J2710; J3010; J3480; J3490; J7120